=== PATIENT | male | born 1985 | race Caucasian/White ===

== ENCOUNTER 2017-01-27 16:17 | Emergency (ER) | payer OTHER ==
[~2017-01-27 16:17] MED LIST: ASPIR-LOW81 MG PO; CATAPRES 0.1MG0.1 MG PO; FISH OIL300 MG PO; LIPITOR TAB 2020 MG PO; LISINOPRIL10 MG PO; METOPROLOL TART25 MG PO; MULTIVITAMINS1 EAC1 PO; NORVASC 5 MG TAB5 MG PO; RISPERDAL1 MG PO; TRAZODONE HCL50 MG PO; VITAMIN E; ZOLOFT50 MG PO
[2017-01-27 17:42] LABS: HEMOGLOBIN 13.7 gm/dl (14.0-17.5); RED BLOOD COUNT 4.8 M/UL (4.20-5.50); WHITE BLOOD COUNT 9.6 K/UL (4.5-11.0)
[2017-06-30] MEDS ORDERED: LOSARTAN-HCTZ1 EAC2 PO (10:21)
[2017-06-30] MEDS ORDERED: IBUPROFEN800 MG PO (10:22)
[2017-06-30] MEDS ORDERED: OMEPRAZOLE20 M1 PO (10:22)
[2017-06-30] MEDS ORDERED: NORCO 5-325 TA1 EACH PO (15:26)
== END 2017-01-27 22:55 | disposition home or self-care (01) ==
LOC: ER1 16:17
PROVIDERS: Emergency Medicine
DX: K57.92 Diverticulitis of intestine, part unspecified, without perforation or abscess without bleeding (principal); K52.9 Noninfective gastroenteritis and colitis, unspecified; N17.9 Acute kidney failure, unspecified; E86.0 Dehydration; I10 Essential (primary) hypertension; Z88.0 Allergy status to penicillin; Z88.1 Allergy status to other antibiotic agents; Z79.899 Other long term (current) drug therapy
CPT/HCPCS: 36415; 71020; 80053; 81001; 82150; 83690; 85025; 87086; 96361; 96374; 96375; 99284; J2270; J2405; J7030